=== PATIENT | female | born 2000 | race Caucasian/White ===

== ENCOUNTER 2022-01-08 11:07 | Outpatient (CLI) | payer OTHER ==
[~2022-01-08 11:07] MED LIST: Magnevist 469MG/ML 20 ML VIAL ONE
== END 2022-01-08 11:08 | disposition home or self-care (01) ==
LOC: CSHMRI 11:07
PROVIDERS: ATTEND Family Medicine
DX: R51.9 Headache, unspecified (principal); R47.81 Slurred speech; R20.2 Paresthesia of skin; R53.82 Chronic fatigue, unspecified; R25.1 Tremor, unspecified
CPT/HCPCS: 70553; A9579